=== PATIENT | female | born 1995 | race Caucasian/White ===

== ENCOUNTER 2019-09-07 10:00 | Observation (INO) | payer MEDICAID ==
[2019-09-07 11:01] VITALS: BP 97/55
[2019-09-07] MEDS ORDERED: PREN-134 PO (11:04)
== END 2019-09-07 13:40 | disposition home or self-care (01) ==
LOC: 4S 10:00
PROVIDERS: ADMIT Obstetrics & Gynecology; ATTEND Obstetrics & Gynecology
DX: O26.853 Spotting complicating pregnancy, third trimester (principal); Z3A.28 28 weeks gestation of pregnancy
CPT/HCPCS: 76805; 80307 ×8; 81002; G0378